=== PATIENT | female | born 1995 | race Caucasian/White ===

== ENCOUNTER 2023-12-16 12:54 | Observation (INO) | payer OTHER ==
--- NOTE | 2023-12-16 13:22 | ED ---
General Adult HPI - General Chief complaint: Seizure Stated complaint: Seizure Time Seen by Provider: 12/16/23 12:55 Source: patient, EMS, RN notes reviewed Mode of arrival: EMS Limitations: no limitations - History of Present Illness Initial comments: Patient is a 28-year-old female presenting to the emergency department for seizure. Patient states last alcohol was around 14 hours ago. Patient does drink alcohol daily normally. Patient was checking into [facility] when she did have a seizure. Patient is feeling better at this time. Patient does have history of seizure once previously also associated with quitting alcohol. - Related Data Home Medications Medication Instructions Recorded Confirmed DULoxetine HCL [Cymbalta] 60 mg PO BID 12/16/23 12/16/23 Folic Acid 1 mg PO DAILY 12/16/23 12/16/23 Metoprolol Succinate (ER) [Toprol 100 mg PO DAILY 12/16/23 12/16/23 Xl] Pantoprazole [Protonix] 40 mg PO DAILY 12/16/23 12/16/23 QUEtiapine FUMARATE [SEROquel] 400 mg PO HS 12/16/23 12/16/23 cloNIDine HCL [Catapres] 0.2 mg PO BID 12/16/23 12/16/23 Allergies Allergy/AdvReac Type Severity Reaction Status Date / Time No Known Allergies Allergy Verified 12/16/23 13:50 Review of Systems ROS Statement: Those systems with pertinent positive or pertinent negative responses have been documented in the HPI. ROS Other: All systems not noted in ROS Statement are negative. Constitutional: Denies: fever ENT: Denies: ear pain Gastrointestinal: Denies: abdominal pain Musculoskeletal: Denies: back pain Neurological: Reports: as per HPI. Denies: headache, weakness Past Medical History Past Medical History: Hypertension, Seizure Disorder History of Any Multi-Drug Resistant Organisms: None Reported Past Surgical History: No Surgical Hx Reported Smoking Status: Vaper Past Alcohol Use History: Daily, Heavy Past Drug Use History: None Reported General Exam Limitations: no limitations General appearance: alert, in no apparent distress Head exam: Present: atraumatic Eye exam: Present: normal appearance, PERRL, EOMI ENT exam: Present: other (Small tongue abrasion) Neck exam: Present: normal inspection. Absent: tenderness Respiratory exam: Present: normal lung sounds bilaterally Cardiovascular Exam: Present: regular rate, normal rhythm GI/Abdominal exam: Present: soft. Absent: tenderness Extremities exam: Present: normal inspection. Absent: pedal edema, calf tenderness Neurological exam: Present: alert, oriented X3, CN II-XII intact. Absent: motor sensory deficit Expanded Neurological exam: Present: protecting the airway Patient oriented to: Present: person, place, time Speech: Present: fluid speech Cranial nerves: EOM's Intact: Normal, Facial Sensation: Normal Sensory exam: Upper Extremity Light Touch: Normal, Lower Extremity Light Touch: Normal Motor strength exam: RUE: 5, LUE: 5, RLE: 5, LLE: 5 Eye Response: (4) open spontaneously Motor Response: (6) obeys commands Verbal Response: (5) oriented Psychiatric exam: Present: normal affect, normal mood Skin exam: Present: normal color Course Vital Signs 12/16/23 12/16/23 12/16/23 12:56 13:31 14:06 Pulse Rate 97 93 100 Respiratory 18 18 18 Rate Blood Pressure 115/64 121/73 O2 Sat by Pulse 99 96 96 Oximetry EKG Findings - EKG Results: EKG: interpreted by ERMD (Nonspecific T wave), sinus rhythm, normal axis, normal QRS Medical Decision Making - Medical Decision Making Was pt. sent in by a medical professional or institution (, [facility], [facility], urgent care, hospital, or halfway...) When possible be specific @ -Patient was sent from [facility] Did you speak to anyone other than the patient for history (EMS, parent, family, police, friend...)? What history was obtained from this source @ -No Did you review nursing and triage notes (agree or disagree)? Why? @ -I reviewed and agree with nursing and triage notes Were old charts reviewed (outside hosp., previous admission, EMS record, old EKG, old radiological studies, urgent care reports/EKG's, halfway records)? Report findings @ -No old charts were reviewed Differential Diagnosis (chest pain, altered mental status, abdominal pain women, abdominal pain men, vaginal bleeding, weakness, fever, dyspnea, syncope, headache, dizziness, GI bleed, back pain, seizure, CVA, palpatations, mental health, musculoskeletal)? @ -Differential Seizure: Recurrent seizure disorder, febrile seizure, alcohol withdrawal, stimulants, meningitis, encephalitis, intercranial hemorrhage, intracranial tumor, stroke, eclampsia, thyrotoxicosis, hypocalcemia, hyponatremia, hypernatremia, hypomagnesemia, psychogenic, this is not meant to be an all-inclusive list. EKG interpreted by me (3pts min.). @ -As above X-rays interpreted by me (1pt min.). @ -None done CT interpreted by me (1pt min.). @ -CT scan pending U/S interpreted by me (1pt. min.). @ -None done What testing was considered but not performed or refused? (CT, X-rays, U/S, labs)? Why? @ -CT scan was ordered however still pending What meds were considered but not given or refused? Why? @ -None Did you discuss the management of the patient with other professionals (professionals i.e. , PA, [facility], lab, RT, psych nurse, geriatric social worker, grain spouter, t eacher, promotion officer, case management manager)? Give summary @ -Case was discussed with Dr. Claudio who will admit covering hospital call. He is aware of CT scan pending Was smoking cessation discussed for >3mins.? @ -No Was critical care preformed (if so, how long)? @ -No Were there social determinants of health that impacted care today? How? (Homelessness, low income, unemployed, alcoholism, drug addiction, transportation, low edu. Level, literacy, decrease access to med. care, senior living, rehab)? @ -No Was there de-escalation of care discussed even if they declined (Discuss DNR or withdrawal of care, Hospice)? DNR status @ -No What co-morbidities impacted this encounter? (DM, HTN, Smoking, COPD, CAD, Cancer, CVA, ARF, Chemo, Hep., AIDS, mental health diagnosis, sleep apnea, morbid obesity)? @ -None Was patient admitted / discharged? Hospital course, mention meds given and route, prescriptions, significant lab abnormalities, going to OR and other pertinent info. @ -Patient presents with seizure with alcohol withdrawal. Alcohol level 297. Hypokalemia. Patient will be admitted. Admission orders written Undiagnosed new problem with uncertain prognosis? @ -No Drug Therapy requiring intensive monitoring for toxicity (Heparin, Nitro, Insulin, Cardizem)? @ -No Were any procedures done? @ -No Diagnosis/symptom? @ -Alcohol withdrawal seizure, alcohol intoxication, hypokalemia Acute, or Chronic, or Acute on Chronic? @ -Acute, acute, acute Uncomplicated (without systemic symptoms) or Complicated (systemic symptoms)? @ -Default Side effects of treatment? @ -No Exacerbation, Progression, or Severe Exacerbation? @ -No Poses a threat to life or bodily function? How? (Chest pain, USA, CT, pneumonia, PE, COPD, DKA, ARF, appy, cholecystitis, CVA, Diverticulitis, Homicidal, Suicidal, threat to staff... and all critical care pts) @ -No - Lab Data Result diagrams: 12/16/23 13:23 12/16/23 13:23 Lab Results 12/16/23 12/16/23 12/16/23 Range/Units 13:23 13:23 13:23 WBC 7.2 (3.8-10.6) k/uL RBC 3.96 (3.80-5.40) m/uL Hgb 11.6 (11.4-16.0) gm/dL Hct 35.5 (34.0-46.0) % MCV 89.5 (80.0-100.0) fL MCH 29.2 (25.0-35.0) pg MCHC 32.6 (31.0-37.0) g/dL RDW 13.1 (11.5-15.5) % Plt Count 414 (150-450) k/uL MPV 7.0 Neutrophils % 49 % Lymphocytes % 45 % Monocytes % 3 % Eosinophils % 1 % Basophils % 1 % Neutrophils # 3.5 (1.3-7.7) k/uL Lymphocytes # 3.2 (1.0-4.8) k/uL Monocytes # 0.2 (0-1.0) k/uL Eosinophils # 0.1 (0-0.7) k/uL Basophils # 0.1 (0-0.2) k/uL Sodium 145 (137-145) mmol/L Potassium 3.0 L (3.5-5.1) mmol/L Chloride 108 H (98-107) mmol/L Carbon Dioxide 16 L (22-30) mmol/L Anion Gap 21 mmol/L BUN 7 (7-17) mg/dL Creatinine 0.53 (0.52-1.04) mg/dL Est GFR (CKD-EPI)AfAm >90 (>60 ml/min/1.73 sqM) Est GFR (CKD-EPI)NonAf >90 (>60 ml/min/1.73 sqM) Glucose 146 H (74-99) mg/dL Calcium 8.7 (8.4-10.2) mg/dL Magnesium 2.0 (1.6-2.3) mg/dL Total Bilirubin 0.3 (0.2-1.3) mg/dL AST 149 H (14-36) U/L ALT 52 H (4-34) U/L Alkaline Phosphatase 144 H (38-126) U/L Total Protein 7.7 (6.3-8.2) g/dL Albumin 4.7 (3.5-5.0) g/dL Amylase 86 (30-110) U/L Lipase 32 (23-300) U/L Serum Alcohol 297 H* mg/dL Disposition Clinical Impression: Alcohol withdrawal seizure Disposition: ADMITTED IP TO THIS HOSP Is patient prescribed a controlled substance at d/c from ED?: No Referrals: None,Stated [Primary Care Provider] - 1-2 days Time of Disposition: 14:41
[2023-12-16 13:28] LABS: Basophils # (A) 0.1 k/uL (0-0.2); Basophils % (A) 1 %; Eosinophils # (A) 0.1 k/uL (0-0.7); Eosinophils % (A) 1 %; HCT 35.5 % (34.0-46.0); HGB 11.6 gm/dL (11.4-16.0); Lymphocytes # (A) 3.2 k/uL (1.0-4.8); Lymphocytes % (A) 45 %; MCH 29.2 pg (25.0-35.0); MCHC 32.6 g/dL (31.0-37.0); MCV 89.5 fL (80.0-100.0); Monocytes # (A) 0.2 k/uL (0-1.0); Monocytes % (A) 3 %; Neutrophils # (A) 3.5 k/uL (1.3-7.7); Neutrophils % (A) 49 %; Platelet Count 414 k/uL (150-450); RBC 3.96 m/uL (3.80-5.40); RDW 13.1 % (11.5-15.5); WBC 7.2 k/uL (3.8-10.6)
[2023-12-16] MEDS: LORazepam 2 MG/ML INJ IV STA (13:30)
[2023-12-16 13:43] LABS: ALT 52 U/L (4-34); AST 149 U/L (14-36); African American GFR (CKD) >90 (>60 ml/min/1.73 sqM); Albumin 4.7 g/dL (3.5-5.0); Alkaline Phosphatase 144 U/L (38-126); Anion Gap 21 mmol/L; Blood Urea Nitrogen 7 mg/dL (7-17); Calcium 8.7 mg/dL (8.4-10.2); Carbon Dioxide 16 mmol/L (22-30); Chloride 108 mmol/L (98-107); Glucose 146 mg/dL (74-99); Non-African American GFR(CKD) >90 (>60 ml/min/1.73 sqM); Sodium 145 mmol/L (137-145); Total Bilirubin 0.3 mg/dL (0.2-1.3); Total Protein 7.7 g/dL (6.3-8.2)
[2023-12-16 13:46] LABS: Alcohol 297 mg/dL
[2023-12-16] MEDS: FAMOTIDINE 20 MG/2 ML VIAL IV STA ×2 (14:02→23:09)
[2023-12-16] MEDS: POTASSIUM CHLORIDE ER 20 MEQ TAB.ER PO STA (14:03)
[2023-12-16 14:04] LABS: Amylase 86 U/L (30-110); Lipase 32 U/L (23-300)
[2023-12-16] MEDS: ACETAMINOPHEN IV (For NPO) 1,000 MG in EMPTY BAG 1 BAG IVPB STA (14:17)
[2023-12-16] MEDS ORDERED: LORazepam 0.5 MG TAB PO PRN (14:41)
[2023-12-16] MEDS ORDERED: LORazepam 2 MG/ML INJ IV PRN (14:41)
[2023-12-16] MEDS ORDERED: ONDANSETRON 4 MG/2 ML VIAL IVP PRN (14:42)
[2023-12-16] MEDS ORDERED: NALOXONE 0.4 MG/ML 1 ML VIAL IV PRN (14:42)
--- NOTE | 2023-12-16 15:10 | CT ---
EXAMINATION TYPE: CT brain wo con DATE OF EXAM: 12/16/2023 COMPARISON: None INDICATION: seizure due to withdrawl DLP: 1138.4 mGycm, Automated exposure control for dose reduction was used. CONTRAST: None CT of the brain is performed utilizing 3 mm thick sections through the posterior fossa and 3 mm thick sections through the remaining calvarium. Study is performed within 24 hours of arrival to the hosp ital. No abnormal hyperdensity is present to suggest an acute intracranial hemorrhage. No mass lesion is evident. No acute infarcts are evident. Ventricles and sulci are appropriate for the patient age. Paranasal sinuses and mastoid air cells within the [id number] are clear. IMPRESSION: 1. No acute intracranial process. Follow-up MRI can be performed as clinically indicated.
[2023-12-16] MEDS: THIAMINE 100 MG/ML 2 ML VIAL IM STA (15:39)
[2023-12-16] MEDS: LORazepam 1 MG TAB PO PRN ×2 (15:44→20:58)
[2023-12-16] MEDS: SODIUM CHLORIDE 0.9% 1,000 ML IV SCH (15:44)
[2023-12-16] MEDS: DULoxetine HCL 60 MG CAPSULE.DR PO SCH (20:24)
[2023-12-16] MEDS: cloNIDine HCL 0.2 MG TAB PO SCH (20:24)
[2023-12-16] MEDS: QUEtiapine 400 MG TAB PO SCH (20:24)
--- NOTE | 2023-12-17 00:15 | P.HPIM ---
History of Present Illness H&P Date: 12/16/23 Chief Complaint: Alcohol intoxication Patient is a 28-year-old female with a past medical history of alcohol abuse, hypertension and prior history of seizures presents to ER due to complaints of seizures. Patient states that her last drink Was about 14 hours ago. Patient d oes drink on daily basis. Patient was trying to detox herself at home and states that she did have a seizure. Prior history of alcohol withdrawal times once before. Patient is stating that she is feeling shaky and could not detox herself at home. Presents to ER for evaluation. EKG showed sinus rhythm with nonspecific T wave abnormality. CT head showed no acute intracranial process. Laboratory data showed WBC 7.2 hemoglobin 11.6 and platelets 414 sodium 145 potassium 3.0 chloride 108 bicarb is 16 blood sugar 146 magnesium 2.0 AST 449 ALT 52 alk phos 144 and serum alcohol level is 297 Review of Systems ROS unobtainable: due to mental status Past Medical History Past Medical History: Hypertension, Seizure Disorder History of Any Multi-Drug Resistant Organisms: None Reported Past Surgical History: No Surgical Hx Reported Smoking Status: Vaper Past Alcohol Use History: Daily, Heavy Past Drug Use History: None Reported Medications and Allergies Home Medications Medication Instructions Recorded Confirmed Type DULoxetine HCL [Cymbalta] 60 mg PO BID 12/16/23 12/16/23 History Folic Acid 1 mg PO DAILY 12/16/23 12/16/23 History Metoprolol Succinate (ER) [Toprol 100 mg PO DAILY 12/16/23 12/16/23 History Xl] Pantoprazole [Protonix] 40 mg PO DAILY 12/16/23 12/16/23 History QUEtiapine FUMARATE [SEROquel] 400 mg PO HS 12/16/23 12/16/23 History cloNIDine HCL [Catapres] 0.2 mg PO BID 12/16/23 12/16/23 History Allergies Allergy/AdvReac Type Severity Reaction Status Date / Time No Known Allergies Allergy Verified 12/16/23 13:50 Physical Exam Vitals: Vital Signs Temp Pulse Resp BP Pulse Ox 12/16/23 20:03 98.4 F 96 16 130/90 97 12/16/23 17:47 98 18 140/86 99 12/16/23 14:06 100 18 121/73 96 12/16/23 13:31 93 18 96 12/16/23 12:56 97 18 115/64 99 Intake and Output 12/16/23 12/16/23 12/16/23 06:59 14:59 22:59 Other: Weight 90.718 kg PHYSICAL EXAMINATION: Patient is lying in the bed, mild distress and anxious., awake alert and oriented.. HEENT: Normocephalic. Neck is supple. Pupils reactive. Nostrils clear. Oral cavity is moist. Neck reveals no JVD, carotid bruits, or thyromegaly. CHEST EXAMINATION: Trachea is central. Symmetrical expansion. Lung frausto clear to auscultation and percussion. CARDIAC: Normal S1, S2 with no gallops. No murmurs ABDOMEN: Soft. Bowel sounds normal. No organomegaly. No abdominal bruits. Extremities: reveal no edema. No clubbing or cyanosis Neurologically awake, alert, oriented x3 with well-coordinated movements. No focal deficits noted Skin: No rash or skin lesions. Psychiatric: Coperative. Nonsuicidal patient is anxious and shaky. Musculoskeletal: No joint swelling or deformity. Normal range of motion. Results CBC & Chem 7: 12/17/23 05:53 12/17/23 05:53 Labs: Abnormal Lab Results - Last 24 Hours (Table) 12/16/23 Range/Units 13:23 Potassium 3.0 L (3.5-5.1) mmol/L Chloride 108 H (98-107) mmol/L Carbon Dioxide 16 L (22-30) mmol/L Glucose 146 H (74-99) mg/dL AST 149 H (14-36) U/L ALT 52 H (4-34) U/L Alkaline Phosphatase 144 H (38-126) U/L Serum Alcohol 297 H* mg/dL Thrombosis Risk Factor Assmnt - DVT/VTE Prophylaxis DVT/VTE Prophylaxis: Pharmacologic Prophylaxis ordered Assessment and Plan Assessment: Acute alcohol intoxication with level 297 on admission Possible alcohol withdrawal seizures Severe hypokalemia Elevated liver enzymes/alcoholic hepatitis Severe alcohol abuse on daily basis Hypertension Anxiety and bipolar disorder GI and DVT prophylaxis Plan: Patient will be continued on IV hydration with normal saline. Continue with thiamine and monitor for alcohol withdrawal symptoms. Continue with seizure precautions and fall precautions. Started back on home blood pressure medications and psychiatric medications. Follow-up closely. Replace potassium and repeat level. Time with Patient: Greater than 30
[2023-12-17] MEDS: PANTOPRAZOLE 40 MG TABLET PO SCH (06:26)
[2023-12-17] MEDS: LORazepam 1 MG TAB PO PRN (06:31)
[2023-12-17] MEDS: SODIUM CHLORIDE 0.9% 1,000 ML IV SCH (08:40)
[2023-12-17 08:49] LABS: Basophils # (A) 0.03 X 10*3/uL (0.00-0.10); Basophils % (A) 0.4 %; Eosinophils # (A) 0.08 X 10*3/uL (0.04-0.35); HCT 32.3 % (37.2-46.3); HGB 10.7 g/dL (12.0-15.0); MCHC 33.1 g/dL (32.0-37.0); MCV 87.5 FL (80.0-97.0); Mean Platelet Volume 9.3 FL (9.5-12.2); Monocytes # (A) 0.48 X 10*3/uL (0.20-1.00); Monocytes % (A) 5.9 %; NRBC Per 100 WBC 0 X 10*3/uL (0.00-0.01); Neutrophils # (A) 5.77 X 10*3/uL (1.80-7.70); Neutrophils % (A) 71.3 %; Platelet Count 307 X 10*3/uL (140-440); RBC 3.69 X 10*6/uL (4.10-5.20); RDW 13.2 % (11.5-14.5); WBC 8.09 X 10*3/uL (4.50-10.00)
[2023-12-17 09:00] LABS: ALT 42 U/L (8-44); AST 85 U/L (13-35); Albumin 3.9 g/dL (3.8-4.9); Albumin/Globulin Ratio 1.44 Ratio (1.60-3.17); Alkaline Phosphatase 125 U/L (41-126); BUN/Creat Ratio 15.67 Ratio (12.00-20.00); Blood Urea Nitrogen 9.4 mg/dL (9.0-27.0); Calcium 8.7 mg/dL (8.7-10.3); Carbon Dioxide 23.8 mmol/L (21.6-31.8); Chloride 102 mmol/L (96-109); Globulin 2.7 g/dL (1.6-3.3); Glucose 97 mg/dL (70-110); Magnesium 1.8 mg/dL (1.5-2.4); Potassium 3.5 mmol/L (3.5-5.5); Sodium 140 mmol/L (135-145); Total Bilirubin <0.2 mg/dL (0.3-1.2); Total Protein 6.6 g/dL (6.2-8.2)
[2023-12-17] MEDS ORDERED: PANTOPRAZOLE 40 MG/10 ML VIAL IV SCH (09:00)
[2023-12-17] MEDS: FOLIC ACID 1 MG TAB PO SCH (10:27)
[2023-12-17] MEDS: THIAMINE 100 MG TAB PO SCH (10:28)
[2023-12-17] MEDS: METOPROLOL SUCCINATE (ER) 100 MG TAB.ER.24H PO SCH (11:08)
[2023-12-18 07:47] LABS: African American GFR (CKD) >90 (>60 ml/min/1.73 sqM); Anion Gap 8 mmol/L; Blood Urea Nitrogen 6 mg/dL (7-17); Calcium 8.6 mg/dL (8.4-10.2); Carbon Dioxide 23 mmol/L (22-30); Chloride 108 mmol/L (98-107); Glucose 95 mg/dL (74-99); Non-African American GFR(CKD) >90 (>60 ml/min/1.73 sqM); Sodium 139 mmol/L (137-145)
[2023-12-18 07:52] VITALS: BP 146/98; PULSE 115; TEMP 97.6
[2023-12-18] MEDS ORDERED: POTASSIUM CHLORIDE ER 20 MEQ TAB.ER PO STA (09:51)
[2023-12-18] MEDS: HEPARIN SODIUM,PORCINE 5,000 UNIT/ML 1 ML VIAL SQ SCH (10:02)
[2023-12-18] MEDS: POTASSIUM CHLORIDE ER 20 MEQ TAB.ER PO STA (10:02)
[2023-12-18 10:33] LABS: Basophils % (A) 0 %; Eosinophils # (A) 0.1 k/uL (0-0.7); Eosinophils % (A) 1 %; HCT 33.6 % (34.0-46.0); HGB 11.1 gm/dL (11.4-16.0); Lymphocytes # (A) 1.6 k/uL (1.0-4.8); Lymphocytes % (A) 21 %; MCH 29.5 pg (25.0-35.0); MCHC 33.2 g/dL (31.0-37.0); MCV 89.1 fL (80.0-100.0); Mean Platelet Volume 9.4; Monocytes # (A) 0.3 k/uL (0-1.0); Monocytes % (A) 4 %; Neutrophils # (A) 5.6 k/uL (1.3-7.7); Neutrophils % (A) 73 %; Platelet Count 298 k/uL (150-450); RBC 3.77 m/uL (3.80-5.40); RDW 13.6 % (11.5-15.5); WBC 7.6 k/uL (3.8-10.6)
[2023-12-18 10:41] VITALS: RESP 18
== END 2023-12-18 10:33 | disposition left against medical advice (07) ==
LOC: EC 12:54 → 5NMEDONC 14:43 → 4SSUR 20:02
PROVIDERS: ADMIT Internal Medicine; ATTEND Internal Medicine
DX: F10.139 Alcohol abuse with withdrawal, unspecified (principal); F10.129 Alcohol abuse with intoxication, unspecified; E87.6 Hypokalemia; I10 Essential (primary) hypertension; F17.290 Nicotine dependence, other tobacco product, uncomplicated; K70.10 Alcoholic hepatitis without ascites; F31.9 Bipolar disorder, unspecified; F41.9 Anxiety disorder, unspecified; Y90.8 Blood alcohol level of 240 mg/100 ml or more; Z79.899 Other long term (current) drug therapy
CPT/HCPCS: 96376; 96361; 96372 ×2; 96365; 96375; 99285; 36415; 93005; 80053 ×2; 80048; 82150; 83690; 83735 ×2; 85025 ×3; 80320; 70450; G0378 ×4; J2060; J1644; J3411; J3490; J0131